=== PATIENT | female | born 1970 | race Hispanic/Latino ===

== ENCOUNTER → 2020-07-28 | Day surgery (SDC) | payer BC ==
--- NOTE | 2020-07-28 10:52 | MMO ---
RIGHT BREAST STEREOTACTIC BIOPSY: Date: 07/28/2020 HISTORY: Right breast calcification. COMPARISON: 06/17/2020, 06/12/2019. FINDINGS: Successful right breast stereotactic biopsy. A total of six 10 gauge core biopsy samples were obtaine d. Calcifications are present. Post biopsy clip was placed. Clip is outside of the needle. TECHNIQUE: Consent obtained to perform a right breast stereotactic biopsy. Right breast was prepped and draped i n a sterile fashion. Calcifications were identified via a lateral medial approach. 1% lidocaine was u sed for local anesthesia. Needle position was confirmed with respect to the calcifications. Six biops ies were performed. Specimen radiograph was performed. Clip was placed. Hemostasis was achieved with manual compression. SURGICAL SPECIMEN RADIOGRAPH: Calcifications are present. POSTPROCEDURE MAMMOGRAM: There is appropriate clip in the right retroareolar region. IMPRESSION: Successful right breast stereotactic biopsy. Final pathologic diagnosis is pending. POS: MAX
== END ==
LOC: MAMMO 07:04
PROVIDERS: ATTEND Obstetrics & Gynecology
PROC: 0H9T3ZX Drainage of Right Breast, Percutaneous Approach, Diagnostic (ICD-10-PCS; principal; 2020-07-28)
DX: N60.31 Fibrosclerosis of right breast (principal); N60.81 Other benign mammary dysplasias of right breast
CPT/HCPCS: 19081; 76098; 88305